=== PATIENT | male | born 1965 | race American Indian/Alaskan Native ===

== ENCOUNTER 2018-07-15 01:06 | Emergency (ER) | payer MEDICAID ==
[2018-07-15 01:31] VITALS: BMI 41.3
--- NOTE | 2018-07-15 01:41 | ED PDOC ---
Arrival/HPI - General Time Seen by Provider: 07/15/18 01:07 Historian: EMS - History of Present Illness Narrative History of Present Illness (Text): 07/15/18 01:40 David Saha is a 53 year old male who presents to the Emergency department via EMS for alcohol intoxication and possible substance abuse. Limited HPI and ROS due to patient's intoxication. Time/Duration: Prior to Arrival Symptom Onset: Gradual Symptom Course: Unchanged Context: Home Past Medical History - Provider Review Nursing Documentation Reviewed: Yes Family/Social History - Physician Review Nursing Documentation Reviewed: Yes Family/Social History: Unknown Family HX Allergies/Home Meds Allergies/Adverse Reactions: Allergies No Known Allergies Allergy (Verified 07/15/18 01:40) Home Medications: Home Meds Medication Instructions Recorded Confirmed No Known Home Med 07/15/18 07/15/18 Review of Systems - Review of Systems Systems not reviewed;Unavailable: Intoxicated Physical Exam Vital Signs Reviewed: Yes Blood Pressure: Normal Pulse: Regular Respiratory Rate: Normal Appearance: Positive for: Well-Appearing Pain Distress: None Mental Status: Positive for: other (drowsy but arousable ) - Systems Exam Head: Present: Atraumatic, Normocephalic Pupils: Present: Pinpoint Extroacular Muscles: Present: EOMI Conjunctiva: Present: Normal Mouth: Present: Moist Mucous Membranes Neck: Present: Normal Range of Motion Respiratory/Chest: Present: Clear to Auscultation, Good Air Exchange. No: Re spiratory Distress, Accessory Muscle Use Cardiovascular: Present: Regular Rate and Rhythm, Normal S1, S2. No: Murmurs Abdomen: No: Tenderness, Distention, Peritoneal Signs Back: Present: Normal Inspection Upper Extremity: Present: Normal Inspection. No: Cyanosis, Edema Lower Extremity: Present: Normal Inspection. No: Edema Neurological: Present: GCS=15, CN II-XII Intact Skin: Present: Warm, Dry, Normal Color. No: Rashes Psychiatric: Present: Other (drowsy but arousable ) Medical Decision Making ED Course and Treatment: 07/15/18 01:40 Impression: 53 year old male presents to the Emergency department via EMS due to ETOH abuse and possible substance abuse. Plan: -- EKG -- Labs -- Narcan -- IV Fluids -- Reassess and disposition Progress Notes: Reviewed EKG, NSR at 64 bpm. Normal axis. Normal intervals. No acute ST/T wave changes. 07/15/18 02:00 Pt became awake and alert after receiving Narcan. 07/15/18 06:00 On re-evaluation, pt awake, alert, and in no acute distress. Clinically sober, ambulating with steady gait. Pt denies any complaints. Pt stable for d/c. - EKG Interpretation Interpreted by ED Physician: Yes Type: 12 lead EKG - PA / CANCER REGISTRY MANAGER / Resident Statement MD/DO has reviewed & agrees with the documentation as recorded. - Scribe Statement The provider has reviewed the documentation as recorded by the Scribe Nava Cantor training with Joanna German Provider Scribe Attestation: All medical record entries made by the Farhadibe were at my direction and personally dictated by me. I have reviewed the chart and agree that the record accurately reflects my personal performance of the history, physical exam, medical decision making, and the department course for this patient. I have also personally directed, reviewed, and agree with the discharge instructions and disposition. Disposition/Present on Arrival - Present on Arrival Any Indicators Present on Arrival: No - Disposition Have Diagnosis and Disposition been Completed?: Yes Diagnosis: Drug abuse Disposition: HOME/ ROUTINE Disposition Time: 06:16 Patient Plan: Discharge Patient Problems: Current Active Problems Problem Status Onset Drug abuse Acute Condition: GOOD Discharge Instructions (ExitCare): Drug Abuse and Drug Addiction (DC) Referrals: [facility] [Outside] - Follow up with primary
[2018-07-15] MEDS ORDERED: Naloxone 0.4 mg/ml Inj (Adult) IVP ONE (01:48)
[2018-07-15 01:53] VITALS: O2SAT 96
[2018-07-15] MEDS ORDERED: Naloxone 0.4 mg/ml Inj (Adult) ONE (01:55)
[2018-07-15 02:00] LABS: MEAN CELL VOLUME 91.2 fl (80.0-105.0); MEAN CORPUSCULAR HEMOGLOBIN 30.2 pg (25.0-35.0); MEAN CORPUSCULAR HGB CONC 33.1 g/dl (31.0-37.0); MEAN PLATELET VOLUME 9.1 fl (7.0-11.0); RBC 3.98 10^6/uL (3.5-6.1); RED CELL DISTRIBUTION WIDTH 13.2 % (11.5-14.5); WHITE BLOOD COUNT 7.3 10^3/ul (4.5-11.0)
[2018-07-15] MEDS ORDERED: Sodium Chloride 0.9% 1,000 ML IV SCH (02:00)
[2018-07-15 02:12] LABS: ALB/GLOB RATIO 1.2 (1.1-1.8); ALBUMIN 3.8 g/dL (3.0-4.8); ALT/SGPT 30 U/L (7-56); AST/SGOT 31 U/L (17-59); BLOOD UREA NITROGEN 9 mg/dL (7-21); CALCIUM 8.9 mg/dL (8.4-10.5); GFR NON-AFRICAN AMERICAN > 60
--- NOTE | 2018-07-15 10:30 | CARD ---
APPROVED REPORT Date of service: 07/15/2018 EKG Measurement Heart [id number] <Conclusion> Normal sinus rhythm LAD NSSTW changes
[2018-07-15 13:36] VITALS: BP 122/78; PULSE 78; RESP 17
== END 2018-07-15 11:55 | disposition home or self-care (01) ==
LOC: ED 01:06 → MERGE 01:06 → ED 11:55
DX: F19.10 Other psychoactive substance abuse, uncomplicated (principal)
CPT/HCPCS: 80053; 80320; 82948; 85027; 93005; 96374; 99284; J2310; J7030